=== PATIENT | male | born 2000 | race Caucasian/White ===

== ENCOUNTER 2025-02-13 06:13 | Emergency (ER) | payer BC, SELFPAY ==
[2025-02-13 06:17] VITALS: BP 138/84
[2025-02-13 06:35] VITALS: BMI 29.0
--- NOTE | 2025-02-13 06:35 | ED.GENMED ---
History of Present Illness
General
Chief Complaint: Chest Pain
Time Seen by Provider: 02/13/25 06:25
History of Present Illness
History of Present Illness:
24-year-old male with no past medical history presents to the emergency department for evaluation of intermittent episodes of chest discomfort. He describes brief episodic achy pain to the sternal chest occurring since yesterday. No obvious
provoking or palliating factors. He took Tums and ibuprofen without significant change in symptoms. Not feeling any symptoms at present. No associated fevers or chills, denies any recent viral illnesses. No shortness of breath or pleuritic pain.
Pain does not radiate. Denies any illicit substance use, alcohol use, or prescription medication use. No calf swelling or leg pain. No recent surgeries or immobilization
Review of Systems
Review of Systems
Allergies reviewed?: Yes
All Other Systems: ROS reviewed and negative except as documented in HPI and ROS
Phy Exam
Physical Exam
Physical Exam:
GEN: Well appearing, NAD, WDWN
HEENT: Oral mucosa moist, no scleral icterus
Cardiac: Regular rate and rhythm, no murmurs
Lung: No respiratory distress, no tachypnea, lungs clear to auscultation bilaterally
Chest: Grossly nontender neck, no palpable abnormalities, no crepitus
MSK: No gross deformity or injuries
Skin: Good color, no pallor or jaundice, no rashes
Neuro: AO x3, moves all extremities freely
Psych: Calm, cooperative
Scores
Heart Score for Chest Pain Patients
STEMI patient?: No
History: Slightly or Non-Suspicious
ECG: Normal
Age: </= 45 years
Risk Factors: No Risk Factors
Troponin: </= Normal Limit
Heart Score for Chest Pain Patients: 0
Heart Score Risk: 2.5% MACE over next 6 weeks
Course
Orders/Labs/Results
Orders:
Orders
02/13/25 06:28
Electrocardiogram (*1) Urgent
Reason for Study: Chest Pain
EKG- Treatment ONCE
Vital Signs
Initial and Last Documented VS:
Initial Vital Signs
Temp Pulse Resp BP Pulse Ox
97.9 F 70 16 138/84 99
02/13/25 06:17 02/13/25 06:17 02/13/25 06:17 02/13/25 06:17 02/13/25 06:17
Last Documented Vital Signs
Temp Pulse Resp BP Pulse Ox
97.9 F 70 16 122/67 100
02/13/25 06:17 02/13/25 06:17 02/13/25 06:17 02/13/25 06:42 02/13/25 06:42
MDM/Problems Addressed
MDM/Problems Addressed:
EKG and exam are reassuring, brief episodic pain not concerning for ACS or pulmonary embolism given normal vital signs and lack of potential risk factors. He appears quite well and has no pain in the ED. Likely musculoskeletal etiology versus GERD
Comment
Comment:
EKG independently interpreted by me shows a sinus bradycardia at a rate of [address] changes, QTc of 370
*Pulse Oximetry
SaO2: 99
Oxygen Mode of Delivery: Room air
Patient hypoxic: no
*Critical Care Note
Total Time (30-74mins, 75-104mins- exclusive of procedures): Not Applicable
ED Attending Note
-
Portions of this chart may have been created with voice recognition software.� Occasional wrong word or��sound alike� substitutions may have occurred due to the inherent limitations of voice recognition software.
Discharge Plan
Departure
Patient Disposition: Home (Routine Discharge)
Date of Disposition: 02/13/25
Time of Disposition: 06:44
Patient with high blood pressure during this ER visit?: No
Discharge Problem:
Atypical chest pain
Instructions: Chest Pain That Is Not Caused by the Heart (DC)
Prescriptions:
No Action
No Current Medications
0
Activity Restrictions/Additional Instructions:
The pattern of your chest pain is not concerning for anything related to the heart and your examination is unremarkable. Your EKG is reassuring. Try ibuprofen and/or Tums as needed
Interventions
Interventions:
*Risk Screen - Suicide Last Done: 02/13/25 06:17
*General Assessment Last Done: 02/13/25 06:33
*Neglect/Abuse Screening Last Done: 02/13/25 06:17
*ED- Fall Risk Assessment Last Done: 02/13/25 06:17
*ED COVID-19 Vaccine History Last Done: 02/13/25 06:17
ED- Cardiac Assessment Last Done: 02/13/25 06:33
Discharge Date and Time
Print Language: MICRONESIAN
[2025-02-13 06:42] VITALS: BP 122/67
== END 2025-02-13 07:10 | disposition home or self-care (01) ==
LOC: EMR 06:13
PROVIDERS: EMERGENCY PHYSICIAN Emergency Medicine; FAMILY PHYSICIAN Internal Medicine
DX: R07.89 Other chest pain (principal)
CPT/HCPCS: 99283; 93005

== ENCOUNTER 2025-03-28 11:02 | Emergency (ER) | payer BC, SELFPAY ==
[2025-03-28 11:04] VITALS: BP 155/93
--- NOTE | 2025-03-28 11:28 | ED.GENMED ---
History of Present Illness
General
Chief Complaint: Numbness
Time Seen by Provider: 03/28/25 11:28
History of Present Illness
History of Present Illness:
FOCUSED PAST MEDICAL HISTORY
- Patient is otherwise healthy
REVIEW OF OLD RECORDS
- The patient was seen here 1 month ago with chest pain and at that time had an unremarkable EKG
Note:
CHIEF COMPLAINT(S)
Numbness and weakness in both legs, described as pressure, with associated upper body aching and a sense of generalized weakness.
HISTORY OF PRESENT ILLNESS
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 He did not fall to the ground at that time. Following the numbness, he
experienced aching and weakness that progressed to his upper body. Though the numbness has resolved, he reports a persistent sensation of pressure in his legs without significant pain. The patient also noted nausea and dizziness following the onset
of symptoms but currently does not experience these. His strength and sensation are intact and symmetrical in the lower extremities. He denies chest or abdominal pain, though he reports having been evaluated previously for such discomfort, which was
attributed to gas.
The plan includes considering blood work to evaluate electrolytes, inflammatory markers, and creatine kinase levels to assess for potential muscle breakdown, such as rhabdomyolysis. The patient had a recent physical examination, and no new
medications or acute interventions were necessitated during this visit.
PHYSICAL EXAM
General: Alert, no acute distress.
Skin: Warm, dry.
Head: Normocephalic, atraumatic.
Neck: Supple, trachea midline.
Eye, Ears, Nose, Oral mucosa moist.
Cardiovascular: Normal peripheral perfusion, No edema.
Respiratory: Respirations are non-labored.
Gastrointestinal: Abdomen nondistended.
Back: Normal range of motion, Normal alignment.
Musculoskeletal: Normal range of motion, normal strength.
Neurological: Alert and oriented to person, place, time, and situation, no focal neurological deficit observed.
Psychiatric: Cooperative, appropriate mood & affect.
PLAN
1. Conduct blood work to evaluate electrolytes, inflammatory markers, and creatine kinase levels.
2. Monitoring the patients symptoms and potential need for further intervention if muscle breakdown is suspected.
3. Provide reassurance and educate the patient on signs and symptoms to watch for that would necessitate a return evaluation.
DIFFERENTIAL DIAGNOSIS
The Differential Diagnosis includes, in no particular order and is not limited to:
1. Rhabdomyolysis
2. Electrolyte imbalance
3. Peripheral neuropathy
4. Lumbar radiculopathy
5. Muscular dystrophy
6. Multiple sclerosis
7. Myositis
8. Vascular insufficiency
9. Conversion disorder
10. Anxiety or stress-related disorder
LABS
- CBC normal, chemistries and CK unremarkable
UPDATE
- IV fluids were given and continues to feel improved.
SUMMARY OF ENCOUNTER
The patient, a 24-year-old male, was seen in the emergency department due to symptoms of numbness and weakness in both legs, described as a sensation of pressure, and associated upper body aching. The patient initially experienced these symptoms
while standing and dancing at his workplace but did not fall or experience pain. Nausea and dizziness were present initially but resolved. The ED assessment included blood work evaluating electrolytes, inflammatory markers, and creatine kinase (CK)
levels. Electrolytes came back normal, and the CK level was within the normal range, ruling out rhabdomyolysis. A C-reactive protein test was ordered but not completed due to lab issues. Following intravenous fluid administration, the patient
reported feeling better, though some tiredness persisted. Mother was also concerned about ongoing/increased burping�recommended PPI.
DISPOSITION
Discharge
PATIENT EDUCATION AND COUNSELING
The patient was advised to consider a two-week course of [id number] omeprazole (Prilosec) for potential acid-related chest discomfort. Emphasis was placed on monitoring symptoms and conducting leg stretches to address muscle discomfort.
FOLLOW-UP INSTRUCTIONS
Patient to monitor symptoms and consider evaluating for gastrointestinal-related discomfort if burping or chest discomfort persists.
MEDICATION RECONCILIATION
Patient advised to consider brdj-dej-lfarsqh omeprazole for potential acid-related chest discomfort.
MEDICAL DECISION MAKING
-Complexity of Data Reviewed: Chronic conditions affecting care [none mentioned.] Differential diagnosis includes: Rhabdomyolysis, Electrolyte imbalance, Peripheral neuropathy, Lumbar radiculopathy, Muscular dystrophy, Multiple sclerosis, Myositis,
Vascular insufficiency, Conversion disorder, Anxiety or stress-related disorder.
-Data:
Category 1
Independent review of labs including electrolytes and creatine kinase, which were normal. C-reactive protein was ordered but not completed due to lab issues.
Category 3
Managed care discussion included advising the patient to take [id number] omeprazole for chest discomfort potentially related to acid.
-Risk:
Consideration of Admission/Observation: Escalation of care including admission/observation was considered given the complexity and risk of the patients presenting complaint, exam findings, and/or their underlying comorbidities. However, ultimately I
feel the patient is safe for outpatient management with close follow up. Reasoning: Work-up reassuring, does not reveal any acute life/organ threatening processes, patients symptoms well controlled upon reevaluation, reexamination is reassuring,
vitals are stable, patient agreeable with discharge, reliable for follow-up.
DIAGNOSIS
Numbness and weakness, unspecified (R29.898)
Gastroesophageal reflux disease without esophagitis (K21.9)
Phy Exam
Physical Exam
Physical Exam:
See HPI
Course
Orders/Labs/Results
Orders:
Orders
03/28/25 11:34
0.9% Sodium Chloride 1000 ml [Nss] 1,000 ml IV BOLUS
03/28/25 11:51
CRP [C-Reactive Protein] Urgent
Complete Blood Count/With Diff Urgent
Comprehensive Metabolic Panel Urgent
Creatine Phosphokinase Urgent
Abnormal Lab Results
03/28/25
11:51
MPV 10.8 H fL
(7.4-10.4)
Glucose 101 H mg/dl
(70-99)
Total Bilirubin 1.6 H mg/dl
(0.2-1.3)
03/28/25 11:51
03/28/25 11:51
Vital Signs
Initial and Last Documented VS:
Initial Vital Signs
Temp Pulse Resp BP Pulse Ox
36.8 C 70 16 155/93 98
03/28/25 11:04 03/28/25 11:04 03/28/25 11:04 03/28/25 11:04 03/28/25 11:04
Last Documented Vital Signs
Temp Pulse Resp BP Pulse Ox
36.8 C 70 16 155/93 98
03/28/25 11:04 03/28/25 11:04 03/28/25 11:04 03/28/25 11:04 03/28/25 11:29
*Pulse Oximetry
SaO2: 98
Oxygen Mode of Delivery: Room air
Patient hypoxic: no
*Critical Care Note
Total Time (30-74mins, 75-104mins- exclusive of procedures): Not Applicable
ED Attending Note
-
Portions of this chart may have been created with voice recognition software.� Occasional wrong word or��sound alike� substitutions may have occurred due to the inherent limitations of voice recognition software.
Discharge Plan
Departure
Prescriptions:
No Action
No Current Medications
0
Referrals:
Sherrie Johnson CRNP [Family Provider, Internal Medicine]
Interventions
Interventions:
*Risk Screen - Suicide Last Done: 03/28/25 11:04
*General Assessment Last Done: 03/28/25 11:04
ED- Neurological Assessment Last Done: 03/28/25 12:31
Discharge Date and Time
Print Language: DANISH
[2025-03-28 11:57] LABS: Hematocrit 41.3 % (39.0-52.0); Hemoglobin 14.6 g/dL (13.0-18.0); Mean Corp Hgb Conc. 35.4 g/dL (33.0-37.0); Mean Corpuscular Volume 82.9 fL (80.0-94.0); Nucleated Red Blood Cells % 0 % (-); Platelet Count 141 10^3/uL (130-400); Red Cell Dist. Width 12.0 % (11.5-14.5)
[2025-03-28 12:00] VITALS: BP 135/48
[2025-03-28] MEDS: NSS 1000 IV (12:27)
[2025-03-28 12:37] LABS: ALT (SGPT) 23 U/L (0-50); AST (SGOT) 22 U/L (17-59); Albumin 5.0 g/dl (3.5-5.0); Alkaline Phosphatase 58 U/L (38-126); Blood Urea Nitrogen 19 mg/dl (9-20); Calcium 9.9 mg/dl (8.4-10.2); Carbon Dioxide 28 mmol/L (22-30); Chloride 105 mmol/L (98-107); Glucose 101 mg/dl (70-99); Potassium 4.3 mmol/L (3.5-5.1); Sodium 139 mmol/L (135-145); Total Protein 7.9 g/dl (6.3-8.2); eGFR > 60.00
[2025-03-28 14:49] LABS: C-Reactive Protein < 5.00 mg/L (0.0-10.00)
== END 2025-03-28 14:20 | disposition home or self-care (01) ==
LOC: EMR 11:02
PROVIDERS: EMERGENCY PHYSICIAN Emergency Medicine; FAMILY PHYSICIAN Nurse Practitioner Adult Health
DX: R20.2 Paresthesia of skin (principal)
CPT/HCPCS: 99283; 80053; 82550; 85025; 86140

== ENCOUNTER 2025-03-30 07:43 | Emergency (ER) | payer BC, SELFPAY ==
[2025-03-30 07:49] VITALS: BP 150/95
--- NOTE | 2025-03-30 08:21 | ED.GENMED ---
History of Present Illness
General
Chief Complaint: Abdominal Pain
Time Seen by Provider: 03/30/25 08:07
History of Present Illness
History of Present Illness:
24-year-old male with no significant past medical history presents to the emergency department for evaluation of variable abdominal pain beginning yesterday. He reports left upper and right upper abdominal discomfort associated with chest
burning/acid reflux symptoms. This seemed to worsen when he lied flat. Reports mild pain in the right upper quadrant currently. No fevers, reports that he did have 'shaking chills last night' but none currently. No nausea vomiting or diarrhea.
Review of Systems
Review of Systems
Allergies reviewed?: Yes
All Other Systems: ROS reviewed and negative except as documented in HPI and ROS
Phy Exam
Physical Exam
Physical Exam:
GEN: Well appearing, NAD, WDWN
HEENT: Oral mucosa moist, no scleral icterus
Cardiac: Regular rate
Lung: No respiratory distress, no tachypnea
Abdomen: Soft, grossly nontender to palpation no rigidity
MSK: No gross deformity or injuries
Skin: Good color, no pallor or jaundice, no rashes
Neuro: AO x3, moves all extremities freely
Psych: Calm, cooperative
Course
Orders/Labs/Results
Orders:
Orders
03/30/25 08:31
Complete Blood Count/No Diff Urgent
Comprehensive Metabolic Panel Urgent
Lipase Urgent
Abnormal Lab Results
03/30/25
08:31
MPV 11.3 H fL
(7.4-10.4)
Total Bilirubin 2.0 H mg/dl
(0.2-1.3)
Albumin 5.3 H g/dl
(3.5-5.0)
03/30/25 08:31
03/30/25 08:31
Vital Signs
Initial and Last Documented VS:
Initial Vital Signs
Temp Pulse Resp BP Pulse Ox
97.6 F 94 16 150/95 100
03/30/25 07:49 03/30/25 07:49 03/30/25 07:49 03/30/25 07:49 03/30/25 07:49
Last Documented Vital Signs
Temp Pulse Resp BP Pulse Ox
97.6 F 94 16 150/95 100
03/30/25 07:49 03/30/25 07:49 03/30/25 07:49 03/30/25 07:49 03/30/25 08:21
MDM/Problems Addressed
MDM/Problems Addressed:
Labs are unremarkable, he has a benign abdominal exam thus I do not have concern for surgical pathology such as appendicitis or cholecystitis. His symptoms sound more compatible with GERD thus will recommend activity/dietary modifications with use
of upun-eyk-cemfbeh PPI and H2 blockers
*Pulse Oximetry
SaO2: 100
Oxygen Mode of Delivery: Room air
Patient hypoxic: no
*Critical Care Note
Total Time (30-74mins, 75-104mins- exclusive of procedures): Not Applicable
ED Attending Note
-
Portions of this chart may have been created with voice recognition software.� Occasional wrong word or��sound alike� substitutions may have occurred due to the inherent limitations of voice recognition software.
Discharge Plan
Departure
Patient Disposition: Home (Routine Discharge)
Date of Disposition: 03/30/25
Time of Disposition: 09:34
Patient with high blood pressure during this ER visit?: No
Discharge Problem:
Gastroesophageal reflux
Instructions: Acid reflux and GERD in adults - ED (DC)
Prescriptions:
No Action
No Current Medications
0
Referrals:
Sherrie Johnson CRNP [Family Provider, Internal Medicine]
Activity Restrictions/Additional Instructions:
Omeprazole once daily for 10-14 days
Famotidine (pepcid) 20mg twice daily as needed for acid reflux
Decrease volume of food intake and increase the duration of meals
Interventions
Interventions:
*Risk Screen - Suicide Last Done: 03/30/25 07:49
*Neglect/Abuse Screening Last Done: 03/30/25 07:49
Discharge Date and Time
Print Language: UZBEK
[2025-03-30 09:02] LABS: ALT (SGPT) 22 U/L (0-50); AST (SGOT) 22 U/L (17-59); Albumin 5.3 g/dl (3.5-5.0); Alkaline Phosphatase 54 U/L (38-126); Blood Urea Nitrogen 13 mg/dl (9-20); Calcium 9.9 mg/dl (8.4-10.2); Carbon Dioxide 29 mmol/L (22-30); Chloride 103 mmol/L (98-107); Glucose 99 mg/dl (70-99); Lipase 75 U/L (23-300); Potassium 3.8 mmol/L (3.5-5.1); Sodium 141 mmol/L (135-145); Total Protein 8.1 g/dl (6.3-8.2); eGFR > 60.00
[2025-03-30 09:03] LABS: Hematocrit 43.9 % (39.0-52.0); Hemoglobin 15.5 g/dL (13.0-18.0); Mean Corp Hgb Conc. 35.3 g/dL (33.0-37.0); Mean Corpuscular Volume 83.8 fL (80.0-94.0); Platelet Count 140 10^3/uL (130-400); Red Cell Dist. Width 12.1 % (11.5-14.5)
[2025-03-30 09:53] VITALS: BP 126/71
== END 2025-03-30 09:53 | disposition home or self-care (01) ==
LOC: EMR 07:43
PROVIDERS: Physician Assistant; EMERGENCY PHYSICIAN Student in an Organized Health Care Education/Training Program; FAMILY PHYSICIAN Nurse Practitioner Adult Health
DX: K21.9 Gastro-esophageal reflux disease without esophagitis (principal)
CPT/HCPCS: 99283; 80053; 83690; 85027